=== PATIENT | female | born 1940 | race Caucasian/White ===

== ENCOUNTER 2016-04-20 07:35 | Outpatient (CLI) | payer MEDICARE, OTHER | END 2016-04-20 07:36 | disposition home or self-care (01) | DX: M17.0 Bilateral primary osteoarthritis of knee (principal) ==

== ENCOUNTER 2016-06-19 12:09 | Outpatient (CLI) | payer MEDICARE | END 2016-06-19 12:10 | disposition home or self-care (01) | DX: J06.9 Acute upper respiratory infection, unspecified (principal) ==

== ENCOUNTER 2017-10-22 12:24 | Outpatient (CLI) | payer MEDICARE ==
--- NOTE | 2017-10-22 13:01 | XRAY Report ---
Procedure Date: 10/22/2017 Accession Number: [id number] / [id number] Procedure: XR - Chest 2 View X-Ray CPT Code: 38351 FULL RESULT: EXAM: Chest 2 View X-Ray DATE: 10/22/2017 12:42 PM CLINICAL HISTORY: CHEST PAIN COMPARISON: 06/19/2016. TECHNIQUE: 2 views. FINDINGS: Lungs/Pleura: No focal opacities evident. No pneumothorax or pleural effusion. Normal volumes. Mediastinum: Heart and mediastinal contours are unremarkable. Other: None. IMPRESSION: No acute cardiopulmonary abnormality. RADIA
== END 2017-10-22 12:25 | disposition home or self-care (01) ==
LOC: DI 12:24
PROVIDERS: ATTEND Internal Medicine
DX: R07.9 Chest pain, unspecified (principal)
CPT/HCPCS: 71046

== ENCOUNTER 2017-11-20 20:20 | Emergency (ER) | payer MEDICARE ==
[2017-11-20] MEDS ORDERED: ACETAMINOPHEN 325 MG TABLET PO STA (21:39)
--- NOTE | 2017-11-20 21:42 | ED Physician Documentation ---
History of Present Illness - Stated complaint Stated Complaint: RT LEG PX - Chief complaint Chief Complaint: Ext Problem - History obtained from History obtained from: Patient - History of Present Illness Pain level max: 10 Pain level now: 10 - Additonal information Additional information: Patient is a 77-year-old female who states that she developed leg pain intermittently over the past few days, worse throughout the day as she walked. Better with rest. States is mostly behind the right knee. Became worse tonight and came in for evaluation. Has not taken anything for pain. Review of Systems Constitutional: denies: Fever, Chills Cardiac: denies: Chest pain / pressure Respiratory: denies: Dyspnea, Cough GI: denies: Nausea, Vomiting, Diarrhea PD PAST MEDICAL HISTORY - Past Medical History Past Medical History: Yes Endocrine/Autoimmune: Type 2 diabetes GI: GERD - Past Surgical History Past Surgical History: Yes General: Cholecystectomy - Present Medications Home Medications: Ambulatory Orders Medication Instructions Recorded Confirmed Aspirin Chewable [[facility] 1 tab PO DAILY 10/27/15 Aspirin] Metformin HCl 500 mg PO BIDWM 10/01/17 10/01/17 Multivitamin [Multivitamins] 1 each PO DAILY 10/01/17 10/01/17 Potassium Chloride 1 tab PO DAILY 10/01/17 10/01/17 predniSONE [Prednisone] 40 mg PO DAILY #8 tablet 11/20/17 - Allergies Allergies/Adverse Reactions: Allergies Allergy/AdvReac Type Severity Reaction Status Date / Time blood pressure medications AdvReac makes her Uncoded 10/01/17 15:34 weak - Social History Does the pt smoke?: No Smoking Status: Never smoker Does the pt drink ETOH?: No Does the pt have substance abuse?: No - Immunizations Immunizations are current?: Yes - POLST Patient has POLST: No PD ED PE NORMAL - Vitals Vital signs reviewed: Yes - General General: Alert and oriented X 3, No acute distress - HEENT HEENT: Moist mucous membranes - Neck Neck: Supple, no meningeal sign - Cardiac Cardiac: RRR - Respiratory Respiratory: No respiratory distress, Clear bilaterally - Derm Derm: Warm and dry - Neuro Neuro: Other (Tender to palpation on the posterior aspect of the right calf as well as mild prepatellar swelling, no skin changes. Neurovascularly intact) Results - Vitals Vitals: Oxygen O2 Source Room air - Rads (name of study) Right lower extremity ultrasound Radiology: Prelim report reviewed, EMP read contemporaneously, See rad report ( No DVT) PD MEDICAL DECISION MAKING - ED course Complexity details: reviewed results, re-evaluated patient, considered differential, d/w patient ED course: Patient is a 77-year-old female who presents with right knee pain. Appears to have a bursitis. Place on a small course of steroids for this. No DVT on ultrasound. Ambulating well with a walker. Will have her follow-up closely with her doctor for further evaluation and care. Patient counseled regarding signs and symptoms for which I believe and urgent re-evaluation would be necessary. Patient with good understanding of and agreement to plan and is comfortable going home at this time This document was made in part using voice recognition software. While efforts are made to proofread this document, sound alike and grammatical errors may occur. - Sepsis Event Vital Signs: Oxygen O2 Source Room air Departure - Departure Disposition: 01 Home, Self Care Clinical Impression: Bursitis Qualifiers: Bursitis location: knee Knee bursitis location: infrapatellar bursitis Laterality: right Qualified Code(s): M70.51 - Other bursitis of knee, right knee Condition: Good Instructions: ED Bursitis Follow-Up: GENIE RUBIO MD [Primary Care Provider] - Within 1 week Prescriptions: predniSONE [Prednisone] 40 mg PO DAILY #8 tablet Comments: Return if you worsen. You can use tylenol as needed for pain at home. Use the walker as needed. Discharge Date/Time: 11/21/17 00:06
[2017-11-20] MEDS ORDERED: predniSONE 20 MG TABLET PO STA (22:59)
--- NOTE | 2017-11-20 23:05 | Ultrasound Report ---
Reason: RLE pain/swelling Procedure Date: 11/20/2017 Accession Number: [id number] / [id number] Procedure: US - Duplex Ext Veins Right CPT Code: FULL RESULT: EXAM: RIGHT LOWER EXTREMITY VENOUS ULTRASOUND EXAM DATE: 11/20/2017 10:20 PM. CLINICAL HISTORY: Right leg pain, swelling COMPARISON: None. TECHNIQUE: Real-time sonographic vascular imaging was performed by the cutlery grinder through the lower extremity utilizing both color-flow and Doppler spectral analysis. Multiple bilingual inside sales representative static images were saved for review. FINDINGS: Common Femoral Vein (CFV): Normal. CFV-GSV Junction: Normal. Profunda Femoral Vein (PFV): Normal. Femoral Vein (FV) Prox: Normal. Femoral Vein (FV) Mid: Normal. Femoral Vein (FV) Dist: Normal. Popliteal Vein: Normal. Posterior Tibial Veins: Normal. Peroneal Veins: Normal. Other: Incidental joint effusion right knee. IMPRESSION: No evidence for deep venous thrombosis. RADIA
[2017-11-21 00:08] VITALS: BP 134/85
== END 2017-11-21 00:06 | disposition home or self-care (01) ==
LOC: ED 20:20
DX: M70.51 Other bursitis of knee, right knee (principal); E11.9 Type 2 diabetes mellitus without complications; Z79.82 Long term (current) use of aspirin
CPT/HCPCS: 93971; 99283; A9270; J7512

== ENCOUNTER 2019-01-22 15:00 | Outpatient (CLI) | payer MEDICARE ==
--- NOTE | 2019-01-23 08:58 | XRAY Report ---
Reason: ACUTE BRONCHITIS,UNSPECIFIED Procedure Date: 01/22/2019 Accession Number: [id number] / [id number] Procedure: XR - Chest 2 View X-Ray CPT Code: 26589 FULL RESULT: EXAM: CHEST RADIOGRAPHY EXAM DATE: 01/22/2019 03:05 PM. CLINICAL HISTORY: Acute bronchitis, unspecified. COMPARISON: CHEST 2 VIEW 10/22/2017 12:31 PM. TECHNIQUE: 2 views. FINDINGS: Lungs/Pleura: Mild focal density at the medial right lung base appears mildly increased and may represent atelectasis or scarring. No other definite focal opacities. No pleural effusion. No pneumothorax. Mediastinum: Heart and mediastinal contours are unremarkable. Other: Degenerative spondylosis redemonstrated. IMPRESSION: Mild increased focal density at the medial right lung base likely represents atelectasis or scarring. No other focal or definite acute abnormality. RADIA
== END 2019-01-22 15:01 | disposition home or self-care (01) ==
LOC: DI 15:00
PROVIDERS: ATTEND Physician Assistant
DX: J20.9 Acute bronchitis, unspecified (principal)
CPT/HCPCS: 71046

== ENCOUNTER 2019-03-29 11:12 | Outpatient (CLI) | payer MEDICARE ==
--- NOTE | 2019-03-31 01:16 | Ultrasound Report ---
Reason: ABD PAIN Procedure Date: 03/29/2019 Accession Number: [id number] / [id number] Procedure: US - Pelvic w/Transvaginal CPT Code: Final Report FULL RESULT: EXAM: PELVIC ULTRASOUND EXAM DATE: 03/29/2019 12:15 PM. CLINICAL HISTORY: Lower abdominal pain. Status post hysterectomy. COMPARISON: PELVIC W/TRANSVAGINAL 04/26/2015 1:27 PM. TECHNIQUE: Realtime transabdominal pelvic scan performed for overall evaluation, followed by transvaginal scan to provide greater detail, with static image documentation. FINDINGS: Uterus: Surgically absent. Right Ovary: Not seen due to bowel gas. Left Ovary: 3.2 x 2.4 x 3.1 cm, volume 12.2 cc. Cyst measuring 2.6 x 2.6 x 2.4 cm, previously 2.1 x 2.3 x 2.5 cm. Normal Doppler flow signal. Free Fluid: None. Other: None. IMPRESSION: 1. Status post hysterectomy. Right ovary not seen due to bowel gas. 2. Left ovarian cyst again seen, measuring 2.6 x 2.6 x 2.4 cm. No torsion. RADIA
== END 2019-03-29 11:13 | disposition home or self-care (01) ==
LOC: DI 11:12
PROVIDERS: ATTEND Registered Nurse
DX: N83.202 Unspecified ovarian cyst, left side (principal); Z90.710 Acquired absence of both cervix and uterus
CPT/HCPCS: 76830; 76856

== ENCOUNTER 2020-01-13 08:00 | Outpatient (CLI) | payer MEDICARE | END 2020-01-13 23:59 | disposition home or self-care (01) | LOC: LAB.S 08:00 | PROVIDERS: ATTEND Physician Assistant | DX: E11.65 Type 2 diabetes mellitus with hyperglycemia (principal) | CPT/HCPCS: 82962 ==

== ENCOUNTER 2020-01-15 07:00 | Outpatient (CLI) | payer MEDICARE ==
[2020-01-15 20:44] LABS: CREATININE,URINE 147.6 mg/dL; MICROALBUMIN,URINE 0.3 mg/dL (0-300.0)
== END 2020-01-15 23:59 | disposition home or self-care (01) ==
LOC: LAB.R 07:00
PROVIDERS: ATTEND Physician Assistant Medical
DX: E11.65 Type 2 diabetes mellitus with hyperglycemia (principal); R39.14 Feeling of incomplete bladder emptying; R82.998 Other abnormal findings in urine
CPT/HCPCS: 82043; 82570; 87086

== ENCOUNTER 2020-01-15 08:00 | Outpatient (CLI) | payer MEDICARE ==
[2020-01-15 20:06] LABS: BASOPHILS # (AUTO) 0.1 10^3/uL (0.0-0.1); BASOPHILS % (AUTO) 0.7 %; EOSINOPHILS # (AUTO) 0.2 10^3/uL (0.0-0.7); EOSINOPHILS % (AUTO) 1.9 %; HGB - HEMOGLOBIN 15.4 g/dL (12.0-16.0); LYMPHOCYTES # (AUTO) 2.3 10^3/uL (1.5-3.5); LYMPHOCYTES % (AUTO) 22.7 %; MEAN CORPUSCULAR HEMOGLOBIN 28.8 pg (27.0-31.0); MEAN CORPUSCULAR HGB CONC 32.6 g/dL (32.0-36.0); MEAN CORPUSCULAR VOLUME 88.4 fL (81.0-99.0); MEAN PLATELET VOLUME 10.9 fL (7.9-10.8); MONOCYTES # (AUTO) 0.6 10^3/uL (0.0-1.0); NEUTROPHILS % (AUTO) 68.2 %; PLT - PLATELET COUNT 273 10^3/uL (130-450); RED BLOOD COUNT 5.34 10^6/uL (4.20-5.40); RED CELL DISTRIBUTION WIDTH 14.7 % (12.0-15.0); WHITE BLOOD COUNT 10.3 x10^3/uL (4.8-10.8)
[2020-01-15 20:20] LABS: CALCIUM 9.1 mg/dL (8.5-10.3); CREATININE 0.9 mg/dL (0.4-1.0); CRP - C-REACTIVE PROTEIN 1.2 mg/dL (0-1.0)
[2020-01-15 20:47] LABS: HEMOGLOBIN A1c% 7.7 % (4.27-6.07)
== END 2020-01-15 23:59 | disposition home or self-care (01) ==
LOC: LAB.S 08:00
PROVIDERS: ATTEND Physician Assistant Medical
DX: R79.82 Elevated C-reactive protein (CRP) (principal); R06.02 Shortness of breath; E11.65 Type 2 diabetes mellitus with hyperglycemia
CPT/HCPCS: 36415; 80048; 83036; 84484; 85025; 86140

== ENCOUNTER 2020-01-15 08:00 | Outpatient (CLI) | payer MEDICARE ==
--- NOTE | 2020-01-15 15:40 | XRAY Report ---
PROCEDURE: Chest 2 View X-Ray INDICATIONS: SHORTNESS OF BREATH TECHNIQUE: 2 view(s) of the chest. COMPARISON: 01/22/2019, 10/22/2017, 06/19/2016, 04/28/2013. FINDINGS: Surgical changes and devices: None. Lungs and pleura: No pleural effusions or pneumothorax. Stable opacity over the medial right upper lung zone compatible with degenerative changes at the articulation of the distal first rib. Its stabi lity since 2013 supports a benign process. Lungs are otherwise clear. No acute airspace disease. Mediastinum: Mediastinal contours are normal. Heart size is normal. Bones and chest wall: No suspicious bony abnormalities. Soft tissues appear unremarkable. IMPRESSION: Stable examination of the chest without acute cardiopulmonary abnormalities. Reviewed by: Luis A Mo MD on 01/15/2020 3:38 PM PDT Approved by: Luis A Mo MD on 01/15/2020 3:38 PM PDT Station ID: [id number]
== END 2020-01-15 23:59 | disposition home or self-care (01) ==
LOC: DI.S 08:00
PROVIDERS: ATTEND Physician Assistant Medical
DX: R06.02 Shortness of breath (principal); E11.65 Type 2 diabetes mellitus with hyperglycemia; R79.82 Elevated C-reactive protein (CRP); R39.14 Feeling of incomplete bladder emptying; R82.998 Other abnormal findings in urine
CPT/HCPCS: 36415; 71046; 80048; 82043; 82570; 83036; 84484; 85025; 86140; 87086

== ENCOUNTER 2020-01-19 15:48 | Outpatient (CLI) | payer MEDICARE | END 2020-01-19 15:49 | disposition home or self-care (01) | LOC: LAB.S 15:48 | PROVIDERS: ATTEND Internal Medicine | DX: R06.02 Shortness of breath (principal) | CPT/HCPCS: 36415; 83880 ==

== ENCOUNTER 2020-03-10 16:14 | Outpatient (CLI) | payer MEDICARE | END 2020-03-10 16:15 | disposition home or self-care (01) | LOC: LAB.S 16:14 | PROVIDERS: ATTEND Internal Medicine | DX: L65.9 Nonscarring hair loss, unspecified (principal) | CPT/HCPCS: 36415; 82728; 84443 ==

== ENCOUNTER 2020-05-18 10:11 | Outpatient (CLI) | payer MEDICARE ==
[2020-05-18 14:28] LABS: BASOPHILS # (AUTO) 0.1 10^3/uL (0.0-0.1); BASOPHILS % (AUTO) 0.6 %; EOSINOPHILS # (AUTO) 0.3 10^3/uL (0.0-0.7); EOSINOPHILS % (AUTO) 3.4 %; HGB - HEMOGLOBIN 15.9 g/dL (12.0-16.0); LYMPHOCYTES # (AUTO) 2.1 10^3/uL (1.5-3.5); MEAN CORPUSCULAR HEMOGLOBIN 28.7 pg (27.0-31.0); MEAN CORPUSCULAR HGB CONC 32.6 g/dL (32.0-36.0); MEAN CORPUSCULAR VOLUME 87.9 fL (81.0-99.0); MEAN PLATELET VOLUME 11.4 fL (7.9-10.8); MONOCYTES # (AUTO) 0.5 10^3/uL (0.0-1.0); MONOCYTES % (AUTO) 5.7 %; NEUTROPHILS # (AUTO) 5.1 10^3/uL (1.5-6.6); PLT - PLATELET COUNT 269 10^3/uL (130-450); RED BLOOD COUNT 5.54 10^6/uL (4.20-5.40); RED CELL DISTRIBUTION WIDTH 14.5 % (12.0-15.0)
[2020-05-18 15:33] LABS: ALBUMIN 3.6 g/dL (3.2-5.5); ALKALINE PHOSPHATASE 88 IU/L (42-121); ALT ALANINE AMINOTRANSFERASE 24 IU/L (10-60); AST ASPARTATE AMINOTRANSFERASE 17 IU/L (10-42); BILIRUBIN,TOTAL 0.6 mg/dL (0.2-1.0); BUN - BLOOD UREA NITROGEN 20 mg/dL (6-20); CALCIUM 9.3 mg/dL (8.5-10.3); CARBON DIOXIDE - CO2 23 mmol/L (21-32); CHLORIDE 108 mmol/L (101-111); CHOL/HDL RATIO 3.7 (<4.4); CHOLESTEROL 187 mg/dL; CREATININE 0.9 mg/dL (0.4-1.0); GLUCOSE 193 mg/dL (70-100); HDL CHOLESTEROL 51 mg/dL; LDL CHOLESTEROL,CALCULATED 110 mg/dL; LDL/HDL RATIO 2.2 (<4.4); TOTAL PROTEIN 7.2 g/dL (6.7-8.2); VLDL CHOLESTEROL 26 mg/dL
[2020-05-18 20:05] LABS: HEMOGLOBIN A1c% 8.6 % (4.27-6.07)
== END 2020-05-18 10:12 | disposition home or self-care (01) ==
LOC: LAB.S 10:11
PROVIDERS: ATTEND Internal Medicine
DX: E11.65 Type 2 diabetes mellitus with hyperglycemia (principal); Z79.899 Other long term (current) drug therapy; R79.82 Elevated C-reactive protein (CRP)
CPT/HCPCS: 36415; 80053; 80061; 83036; 83721; 85025; 86140

== ENCOUNTER 2020-06-09 10:49 | Outpatient (CLI) | payer MEDICARE ==
--- NOTE | 2020-06-10 14:18 | Mammography Report ---
BILATERAL DIGITAL SCREENING MAMMOGRAM 3D/2D: 06/09/2020 CLINICAL: Routine screening. Comparison is made to exam dated: 04/29/2014 mammogram - [facility]. There are scat tered fibroglandular elements in both breasts. No significant masses, calcifications, or other findings are seen in either breast. There has been no significant interval change. IMPRESSION: NEGATIVE There is no mammographic evidence of malignancy. A 1 year screening mammogram is recommended. This exam was interpreted at Station ID: [id number]. NOTE: For mammograms, a report in lay terms will be sent to the patient. Approximately 15% of breast malignancies will not be visualized mammographically. In the management of a palpable breast mass, a negative mammogram must not discourage biopsy of a clinically suspicious lesion. Electronically Signed By: Sudha min/jordyn:06/09/2020 14:34:34 ACR BI-RADS Category 1: Negative 3341F PARENCHYMAL PATTERN: (A) - The breast(s) demonstrate(s) scattered fibroglandular densities. BI-RADS CATEGORY: (1) - 1 RECOMMENDATION: (ANNUAL) - Recommend routine annual screening mammography. [id number] 1 year screening LATERALITY: (B)
== END 2020-06-09 10:50 | disposition home or self-care (01) ==
LOC: DI.S 10:49
DX: Z12.31 Encounter for screening mammogram for malignant neoplasm of breast (principal)

== ENCOUNTER 2020-09-06 09:02 | Outpatient (CLI) | payer MEDICARE ==
[2020-09-06 20:22] LABS: ESTIMATED AVERAGE GLUCOSE 220 mg/dL (70-100); HEMOGLOBIN A1c% 9.3 % (4.27-6.07)
== END 2020-09-06 09:03 | disposition home or self-care (01) ==
LOC: LAB.S 09:02
PROVIDERS: ATTEND Internal Medicine
DX: E11.65 Type 2 diabetes mellitus with hyperglycemia (principal)
CPT/HCPCS: 36415; 83036

== ENCOUNTER 2021-04-19 12:48 | Outpatient (CLI) | payer MEDICARE ==
[2021-04-19 16:06] LABS: ALBUMIN 3.4 g/dL (3.2-5.5); ALBUMIN/GLOBULIN RATIO 0.9 (1.0-2.2); BILIRUBIN,TOTAL 0.7 mg/dL (0.2-1.0); CALCIUM 9.1 mg/dL (8.5-10.3); TOTAL PROTEIN 7.1 g/dL (6.7-8.2)
[2021-04-19 20:17] LABS: ESTIMATED AVERAGE GLUCOSE 137 mg/dL (70-100); HEMOGLOBIN A1c% 6.4 % (4.27-6.07)
== END 2021-04-19 12:49 | disposition home or self-care (01) ==
LOC: LAB.S 12:48
PROVIDERS: ATTEND Internal Medicine
DX: E11.65 Type 2 diabetes mellitus with hyperglycemia (principal)
CPT/HCPCS: 36415; 80053; 83036

== ENCOUNTER 2021-05-07 16:10 | Outpatient (CLI) | payer MEDICARE | END 2021-05-07 23:59 | disposition home or self-care (01) | LOC: LAB 16:10 | PROVIDERS: ATTEND Physician Assistant Medical | DX: R09.81 Nasal congestion (principal); R07.0 Pain in throat; R06.9 Unspecified abnormalities of breathing; Z20.822 Contact with and (suspected) exposure to COVID-19 ==

== ENCOUNTER 2021-08-23 11:25 | Outpatient (CLI) | payer MEDICARE ==
[2021-08-23 17:45] LABS: BILIRUBIN,URINE NEGATIVE (NEGATIVE); GLUCOSE, URINE (UA) NEGATIVE (NEGATIVE); KETONES,URINE (UA) NEGATIVE (NEGATIVE); LEUKOCYTE ESTERASE, URINE TRACE (NEGATIVE); NITRITE,URINE POSITIVE (NEGATIVE); OCCULT BLOOD,URINE MODERATE (NEGATIVE); PH,URINE 5.5 PH (5.0-7.5); PROTEIN,URINE NEGATIVE (NEGATIVE); UROBILINOGEN,URINE 0.2 (NORMAL) E.U./dL (NORMAL)
[2021-08-23 17:52] LABS: AMORPHOUS SEDIMENT,UR Moderate /LPF; BACTERIA,URINE Many /HPF (None Seen); CLARITY,URINE CLOUDY (CLEAR); SQUAMOUS EPITHELIAL CELL,UR RARE Squamous (<= Few)
== END 2021-08-23 23:59 | disposition home or self-care (01) ==
LOC: LAB.WCP 11:25
PROVIDERS: ATTEND Nurse Practitioner Family
DX: N39.0 Urinary tract infection, site not specified (principal)
CPT/HCPCS: 81001; 87086; 87181

== ENCOUNTER 2021-11-23 08:00 | Outpatient (CLI) | payer MEDICARE ==
[2021-11-23 20:40] LABS: EOSINOPHILS # (AUTO) 0.2 10^3/uL (0.0-0.7); EOSINOPHILS % (AUTO) 1.6 %; HCT - HEMATOCRIT 51.2 % (37.0-47.0); LYMPHOCYTES # (AUTO) 1.4 10^3/uL (1.5-3.5); LYMPHOCYTES % (AUTO) 12.4 %; MEAN CORPUSCULAR HEMOGLOBIN 28.6 pg (27.0-31.0); MEAN CORPUSCULAR HGB CONC 33.2 g/dL (32.0-36.0); MEAN CORPUSCULAR VOLUME 86.1 fL (81.0-99.0); MEAN PLATELET VOLUME 10.8 fL (7.9-10.8); MONOCYTES # (AUTO) 0.7 10^3/uL (0.0-1.0); MONOCYTES % (AUTO) 5.9 %; NEUTROPHILS # (AUTO) 8.8 10^3/uL (1.5-6.6); NEUTROPHILS % (AUTO) 79.7 %; PLT - PLATELET COUNT 313 10^3/uL (130-450); RED BLOOD COUNT 5.95 10^6/uL (4.20-5.40); RED CELL DISTRIBUTION WIDTH 15.2 % (12.0-15.0); WHITE BLOOD COUNT 11.1 x10^3/uL (4.8-10.8)
[2021-11-23 20:48] LABS: ALBUMIN 4.1 g/dL (3.2-5.5); BILIRUBIN,TOTAL 1.1 mg/dL (0.2-1.0); CALCIUM 9.1 mg/dL (8.5-10.3); POTASSIUM 3.3 mmol/L (3.5-5.0); TOTAL PROTEIN 8.2 g/dL (6.7-8.2)
== END 2021-11-23 23:59 | disposition home or self-care (01) ==
LOC: LAB.N 08:00
PROVIDERS: ATTEND Nurse Practitioner
DX: R19.7 Diarrhea, unspecified (principal)
CPT/HCPCS: 36415; 80053; 82150; 83690; 85025

== ENCOUNTER 2021-12-14 11:31 | Outpatient (CLI) | payer MEDICARE ==
[2021-12-14 11:56] LABS: FECAL OCCULT BLOOD (FIT) NEGATIVE (NEGATIVE)
== END 2021-12-14 11:32 | disposition home or self-care (01) ==
LOC: LAB 11:31
PROVIDERS: ATTEND Physician Assistant
DX: R19.7 Diarrhea, unspecified (principal)
CPT/HCPCS: 82274; 83993; 87045; 87046; 87177; 87328; 87329; 87427; 87493

== ENCOUNTER 2021-12-16 13:28 | Outpatient (CLI) | payer MEDICARE ==
[2021-12-18 17:08] LABS: GIARDIA LAMBLIA AG EIA Negative (Negative)
== END 2021-12-16 13:29 | disposition home or self-care (01) ==
LOC: LAB 13:28
PROVIDERS: ATTEND Physician Assistant
DX: R19.7 Diarrhea, unspecified (principal)
CPT/HCPCS: 87177; 87328; 87329

== ENCOUNTER 2022-09-01 10:02 | Outpatient (CLI) | payer MEDICARE ==
[2022-09-01 10:19] LABS: BASOPHILS # (AUTO) 0.1 10^3/uL (0.0-0.1); BASOPHILS % (AUTO) 0.7 %; EOSINOPHILS # (AUTO) 0.2 10^3/uL (0.0-0.7); EOSINOPHILS % (AUTO) 2.8 %; HCT - HEMATOCRIT 47.8 % (37.0-47.0); HGB - HEMOGLOBIN 15.7 g/dL (12.0-16.0); LYMPHOCYTES % (AUTO) 24.4 %; MEAN CORPUSCULAR HEMOGLOBIN 28.3 pg (27.0-31.0); MEAN CORPUSCULAR HGB CONC 32.8 g/dL (32.0-36.0); MEAN CORPUSCULAR VOLUME 86.3 fL (81.0-99.0); MEAN PLATELET VOLUME 10.1 fL (7.9-10.8); MONOCYTES # (AUTO) 0.6 10^3/uL (0.0-1.0); MONOCYTES % (AUTO) 6.9 %; NEUTROPHILS # (AUTO) 5.3 10^3/uL (1.5-6.6); NEUTROPHILS % (AUTO) 65.1 %; PLT - PLATELET COUNT 245 10^3/uL (130-450); RED BLOOD COUNT 5.54 10^6/uL (4.20-5.40); RED CELL DISTRIBUTION WIDTH 14.2 % (12.0-15.0); WHITE BLOOD COUNT 8.1 x10^3/uL (4.8-10.8)
[2022-09-01 10:27] LABS: ESTIMATED AVERAGE GLUCOSE 180 mg/dL (70-100); HEMOGLOBIN A1c% 7.9 % (4.27-6.07)
[2022-09-01 10:36] LABS: CREATININE,URINE 111.1 mg/dL; MICROALBUM/CREATININE RATIO,UR 3.6 ug/mg (<30.0); MICROALBUMIN,URINE 0.4 mg/dL (0-300.0)
[2022-09-01 10:36] LABS: ALBUMIN 3.6 g/dL (3.2-5.5); ALBUMIN/GLOBULIN RATIO 0.9 (1.0-2.2); BILIRUBIN,TOTAL 0.6 mg/dL (0.2-1.0); CALCIUM 8.9 mg/dL (8.5-10.3); CREATININE 0.9 mg/dL (0.4-1.0); CRP - C-REACTIVE PROTEIN 1.1 mg/dL (0-1.0); POTASSIUM 4.1 mmol/L (3.5-5.0); TOTAL PROTEIN 7.5 g/dL (6.7-8.2)
[2022-09-01 10:48] LABS: THYROID STIMULATING HORMONE 3.37 uIU/mL (0.34-5.60)
== END 2022-09-01 10:03 | disposition home or self-care (01) ==
LOC: LAB 10:02
PROVIDERS: ATTEND Family Medicine
DX: E11.9 Type 2 diabetes mellitus without complications (principal); E03.9 Hypothyroidism, unspecified; R19.7 Diarrhea, unspecified; K21.9 Gastro-esophageal reflux disease without esophagitis; R53.83 Other fatigue; R53.81 Other malaise
CPT/HCPCS: 36415; 80053; 82043; 82570; 83036; 84443; 85025; 86140

== ENCOUNTER 2023-05-28 15:25 | Emergency (ER) | payer MEDICARE ==
--- NOTE | 2023-05-28 16:05 | ED Physician Documentation ---
PD HPI ABD PAIN - Stated complaint Stated Complaint: ABD PX,GI - Chief complaint Chief Complaint: Abd Pain - Additional information Additional information: 82-year-old female with type 2 diabetes and history of chronic diarrhea for the last year and a half presents emergency department for left lower quadrant abdominal pain. Patient says that she has not had a bowel movement about a week she says that she has not taken any medications or changed anything to have caused this constipation. She also says that she is having a hard time urinating she feels like she has to pee has urinary urgency and only a couple dribbles come out and she feels like she is unable to ever fully empty her bladder. She is also complaining of left CVA tenderness. She is unsure if she has had any fevers or chills at home she endorses a nausea no vomiting no diarrhea in the last week. 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 - Present Medications Home Medications: Ambulatory Orders Medication Instructions Recorded Confirmed Atorvastatin Calcium 20 mg PO DAILY 08/06/19 05/28/23 - Allergies Allergies/Adverse Reactions: Allergies Allergy/AdvReac Type Severity Reaction Status Date / Time blood pressure medications AdvReac makes her Uncoded 05/28/23 19:52 weak - Social History Does the pt smoke?: No Smoking Status: Never smoker Does the pt drink ETOH?: No Does the pt have substance abuse?: No - Immunizations Immunizations are current?: Yes - POLST Patient has POLST: No PD ED PE NORMAL - Vitals Vital signs reviewed: Yes - General General: Alert and oriented X 3, No acute distress, Other (obese) - Cardiac Cardiac: RRR, No murmur, No gallop, Strong equal pulses - Respiratory Respiratory: No respiratory distress, Clear bilaterally - Abdomen Abdomen: Normal bowel sounds, Soft, Non distended, No organomegaly, Other (LLQ tenderness) - Back Back: Other (Left CVA tenderness) - Derm Derm: Normal color, Warm and dry, No rash - Extremities Extremities: No edema - Neuro Neuro: Alert and oriented X 3 - Psych Psych: Normal mood Results - Vitals Vitals: Vital Signs - 24 hr 05/28/23 05/28/23 05/28/23 15:32 16:22 19:32 Temperature 36 C L Heart Rate 80 73 77 Respiratory 16 18 18 Rate Blood Pressure 158/76 H 146/64 H 138/69 H O2 Saturation 95 94 94 05/28/23 21:00 Temperature Heart Rate 74 Respiratory 18 Rate Blood Pressure 135/72 H O2 Saturation 95 Oxygen O2 Source Room air - Labs Labs: Laboratory Tests 05/28/23 05/28/23 05/28/23 16:16 16:16 16:50 WBC 10.9 H RBC 5.54 H Hgb 15.6 Hct 47.5 H MCV 85.7 MCH 28.2 MCHC 32.8 RDW 14.4 Plt Count 259 MPV 10.2 Neut # (Auto) 7.7 H Lymph # (Auto) 2.1 Bowie # (Auto) 0.6 Eos # (Auto) 0.3 Baso # (Auto) 0.1 Absolute Nucleated RBC 0.00 Nucleated RBC % 0.0 Sodium 143 Potassium 3.2 L Chloride 105 Carbon Dioxide 31 Anion Gap 7.0 BUN 16 Creatinine 0.9 Estimated GFR (MDRD) 60 L Glucose 146 H Calcium 9.6 Magnesium 1.9 Total Bilirubin 0.5 AST 15 ALT 18 Alkaline Phosphatase 75 Total Protein 7.0 Albumin 3.7 Globulin 3.3 Albumin/Globulin Ratio 1.1 Lipase 26 Urine Color YELLOW Urine Clarity HAZY Urine pH 6.0 Ur Specific [place] 1.025 Urine Protein NEGATIVE Urine Glucose (UA) NEGATIVE Urine Ketones NEGATIVE Urine Occult Blood NEGATIVE Urine Nitrite NEGATIVE Urine Bilirubin NEGATIVE Urine Urobilinogen 0.2 (NORMAL) Ur Leukocyte Esterase TRACE H Urine RBC 0-5 Urine WBC 4-5 Ur Squamous Epith Cells MANY Squamous H Urine Bacteria Few Ur Microscopic Review INDICATED Urine Culture Comments NOT INDICATED 05/28/23 19:51 WBC RBC Hgb Hct MCV MCH MCHC RDW Plt Count MPV Neut # (Auto) Lymph # (Auto) [place] # (Auto) Eos # (Auto) Baso # (Auto) Absolute Nucleated RBC Nucleated RBC % Sodium Potassium Chloride Carbon Dioxide Anion Gap BUN Creatinine Estimated GFR (MDRD) Glucose Calcium Magnesium Total Bilirubin AST ALT Alkaline Phosphatase Total Protein Albumin Globulin Albumin/Globulin Ratio Lipase Urine Color YELLOW Urine Clarity CLEAR Urine pH 6.5 Ur Specific [place] 1.010 Urine Protein NEGATIVE Urine Glucose (UA) NEGATIVE Urine Ketones NEGATIVE Urine Occult Blood NEGATIVE Urine Nitrite NEGATIVE Urine Bilirubin NEGATIVE Urine Urobilinogen 0.2 (NORMAL) Ur Leukocyte Esterase NEGATIVE Urine RBC None Seen Urine WBC 0-3 Ur Squamous Epith Cells FEW Squamous Urine Bacteria None Seen Ur Microscopic Review Urine Culture Comments - Rads (name of study) CT abd/pelvis with con Relevant Findings:: Final report received, EMP independent interpretation of test, Other (Left ovarian cyst 3.3cm, transverse colon of RUQ focal area wall thickening causing narrowing of lumen) PD Medical Decision Making - ED course ED course: 82-year-old female presents emergency department for left lower quadrant pain. Labs are complete no significant leukocytosis, WBC 10.9, hematocrit slightly elevated at 47.5, neutrophils 7.7. Potassium is low at 3.2, GFR 60, glucose 146. Her potassium was replaced with 40 mEq orally. Original urinalysis did show trace leukocytes but a moderate amount of squamous cells. We repeated a urinalysis with a straight cath for a more accurate test as patient is quite obese and repeat urinalysis did not show any leukocytes no nitrites and no bacteria in the urine. CT was also complete which was overall fairly inconclusive it revealed a small left lower quadrant ovarian cyst I am not concerned about an ovarian torsion given the way that she is presenting she has had absolutely no nausea vomiting she is not in a severe amount of pain and declines any pain medications. She was found to have focal area of wall thicke raegan of the transverse colon in the right upper quadrant which does not describe the patient's pain that she is experiencing in her left lower quadrant. Patient was informed that there is a possibility that this is due to a neoplasm and that we are recommending colonoscopy outpatient as well as a nonemergent pelvic ultrasound outpatient. Patient said that she recently had a colonoscopy in February and everything was normal I told her that it might be warranted to repeat colonoscopy outpatient but she needs to follow-up with her primary care provider for further evaluation and discussion of this. She does appear to have a moderate amount of gas through her GI tract on CT scan she is told if she is feeling like she is constipated to start taking things like MiraLAX at home and drinking plenty of water make sure she is getting plenty of activity and to help with bowel movements at home be more consistent. She said historically she has had diarrhea so she was hesitant to start any sort of medication such as MiraLAX but is going to start for now. She was given very strict return precautions if her symptoms get any worse or do not improve to report back to the emergency department for further evaluation. Patient understands and is safe for discharge at this time Departure - Departure Disposition: 01 Home, Self Care Clinical Impression: Ovarian cyst, left Abdominal pain Qualifiers: Abdominal location: left lower quadrant Qualified Code(s): R10.32 - Left lower quadrant pain Constipation Qualifiers: Constipation type: unspecified constipation type Qualified Code(s): K59.00 - Constipation, unspecified Condition: Good Instructions: Abdominal Pain Comments: Thank you for trusting us with your care. See below for your CT results. We are not seeing any UTI symptoms on your urinalysis at this time and your bladder was not found to be distended on the CT scan.. You were found to have a left ovarian cyst that was about 3 cm and there was some focal area of wall thickening within the transverse colon of the right upper quadrant. It is uns ure what is causing this but see radiology notes below they are recommending an outpatient colonoscopy for further evaluation. Going home make sure that you are drinking plenty of fluids and reach out to your primary care provider for further evaluation of your CT results below and consider starting to take something like MiraLAX to help you have a bowel movement. FINDINGS: Image quality: Diagnostic. Lower chest: Linear atelectasis versus scarring at the bilateral lower lobes. Liver: No solid mass. Gallbladder and biliary tree: Surgically absent. No biliary dilation, accounting for post- cholecystectomy state. Spleen: No splenomegaly. Pancreas: No pancreatic ductal dilation. Adrenals: No adrenal nodule. Kidneys and ureters: No hydronephrosis. No renal cystic lesion which requires follow up. No solid mass. Stomach, bowel and peritoneum: Within the transverse colon in the right upper quadrant, there is a focal area of wall thickening with narrowing of the lumen (2/44). Normal appendix. No pathologic free fluid within the abdomen or pelvis. Lymph nodes: No central or retroperitoneal adenopathy. Vessels: No infrarenal aortic aneurysm. Vascular gas or calcifications. PELVIS Reproductive organs: Left ovarian cyst measuring 3.3 cm.. Bladder: No abnormal wall thickening, accounting for underdistention. Pelvic lymph nodes: No pelvic adenopathy by size criteria. Bones: No aggressive osseous abnormality. Degenerative changes of the spine. Other: No significant ventral or inguinal hernia. IMPRESSION: 1.No acute findings to explain patient's symptoms. 2.Within the transverse colon in the right upper quadrant, there is a focal area of wall thickening with narrowing of the lumen, neoplasm is in the differential and colonoscopy is recommended for further evaluation. 3.Left ovarian cyst measuring 3.3 cm. Recommend nonemergent pelvic ultrasound for further evaluation. Forms: PCP List Discharge Date/Time: 05/28/23 21:22
[2023-05-28 16:22] LABS: BASOPHILS # (AUTO) 0.1 10^3/uL (0.0-0.1); BASOPHILS % (AUTO) 0.8 %; EOSINOPHILS # (AUTO) 0.3 10^3/uL (0.0-0.7); HCT - HEMATOCRIT 47.5 % (37.0-47.0); HGB - HEMOGLOBIN 15.6 g/dL (12.0-16.0); LYMPHOCYTES # (AUTO) 2.1 10^3/uL (1.5-3.5); LYMPHOCYTES % (AUTO) 19.4 %; MEAN CORPUSCULAR HEMOGLOBIN 28.2 pg (27.0-31.0); MEAN CORPUSCULAR HGB CONC 32.8 g/dL (32.0-36.0); MEAN CORPUSCULAR VOLUME 85.7 fL (81.0-99.0); MEAN PLATELET VOLUME 10.2 fL (7.9-10.8); MONOCYTES # (AUTO) 0.6 10^3/uL (0.0-1.0); MONOCYTES % (AUTO) 5.6 %; NEUTROPHILS # (AUTO) 7.7 10^3/uL (1.5-6.6); NEUTROPHILS % (AUTO) 70.9 %; PLT - PLATELET COUNT 259 10^3/uL (130-450); RED BLOOD COUNT 5.54 10^6/uL (4.20-5.40); RED CELL DISTRIBUTION WIDTH 14.4 % (12.0-15.0); WHITE BLOOD COUNT 10.9 x10^3/uL (4.8-10.8)
[2023-05-28] MEDS ORDERED: IOVERSOL 320 100 ML VIAL IVP ONE (16:39)
[2023-05-28 16:40] LABS: MAGNESIUM 1.9 mg/dL (1.7-2.3)
[2023-05-28 16:46] LABS: ALBUMIN 3.7 g/dL (3.2-5.5); ALBUMIN/GLOBULIN RATIO 1.1 (1.0-2.2); BILIRUBIN,TOTAL 0.5 mg/dL (0.2-1.0); CALCIUM 9.6 mg/dL (8.5-10.3); CREATININE 0.9 mg/dL (0.6-1.3); POTASSIUM 3.2 mmol/L (3.5-4.5)
[2023-05-28 16:55] LABS: BILIRUBIN,URINE NEGATIVE (NEGATIVE); GLUCOSE, URINE (UA) NEGATIVE (NEGATIVE); KETONES,URINE (UA) NEGATIVE (NEGATIVE); LEUKOCYTE ESTERASE, URINE TRACE (NEGATIVE); NITRITE,URINE NEGATIVE (NEGATIVE); OCCULT BLOOD,URINE NEGATIVE (NEGATIVE); PROTEIN,URINE NEGATIVE (NEGATIVE); UROBILINOGEN,URINE 0.2 (NORMAL) E.U./dL (NORMAL)
[2023-05-28 16:57] LABS: CLARITY,URINE HAZY (CLEAR)
[2023-05-28] MEDS: POTASSIUM CHLORIDE 20 MEQ TABLET PO STA (16:57)
[2023-05-28] MEDS: ONDANSETRON 4 MG/2 ML VIAL IVP STA (16:57)
[2023-05-28 17:10] LABS: BACTERIA,URINE Few /HPF (None Seen); RBC,URINE 0-5 /HPF (0-5); SQUAMOUS EPITHELIAL CELL,UR MANY Squamous (<= Few)
[2023-05-28] MEDS: IOVERSOL 320 100 ML VIAL IVP ONE (18:42)
--- NOTE | 2023-05-28 19:12 | CT Report ---
PROCEDURE: Abdomen/Pelvis W INDICATIONS: RUQ pain CONTRAST: Optiray 320- 100ml TECHNIQUE: After the administration of intravenous contrast, a CT scan of the abdomen and pelvis was performed. Images were recorded and evaluated at appropriate window settings. Reformats: coronal and sagittal. F or radiation dose reduction, the following was used: automated exposure control, adjustment of mA and /or kV according to patient size. COMPARISON: None. FINDINGS: Image quality: Diagnostic. Lower chest: Linear atelectasis versus scarring at the bilateral lower lobes. Liver: No solid mass. Gallbladder and biliary tree: Surgically absent. No biliary dilation, accounting for post-cholecystec rosalie state. Spleen: No splenomegaly. Pancreas: No pancreatic ductal dilation. Adrenals: No adrenal nodule. Kidneys and ureters: No hydronephrosis. No renal cystic lesion which requires follow up. No solid mas s. Stomach, bowel and peritoneum: Within the transverse colon in the right upper quadrant, there is a fo saad area of wall thickening with narrowing of the lumen (2/44). Normal appendix. No pathologic free f luid within the abdomen or pelvis. Lymph nodes: No central or retroperitoneal adenopathy. Vessels: No infrarenal aortic aneurysm. Vascular gas or calcifications. PELVIS Reproductive organs: Left ovarian cyst measuring 3.3 cm.. Bladder: No abnormal wall thickening, accounting for underdistention. Pelvic lymph nodes: No pelvic adenopathy by size criteria. Bones: No aggressive osseous abnormality. Degenerative changes of the spine. Other: No significant ventral or inguinal hernia. IMPRESSION: 1.No acute findings to explain patient's symptoms. 2.Within the transverse colon in the right upper quadrant, there is a focal area of wall thickening w ith narrowing of the lumen, neoplasm is in the differential and colonoscopy is recommended for furthe r evaluation. 3.Left ovarian cyst measuring 3.3 cm. Recommend nonemergent pelvic ultrasound for further evaluation. Reviewed by: Alejandro Irving MD on 05/28/2023 7:11 PM PST Approved by: Alejandro Irving MD on 05/28/2023 7:11 PM PST Station ID: [id number]
[2023-05-28 20:12] LABS: BILIRUBIN,URINE NEGATIVE (NEGATIVE); GLUCOSE, URINE (UA) NEGATIVE (NEGATIVE); KETONES,URINE (UA) NEGATIVE (NEGATIVE); LEUKOCYTE ESTERASE, URINE NEGATIVE (NEGATIVE); NITRITE,URINE NEGATIVE (NEGATIVE); OCCULT BLOOD,URINE NEGATIVE (NEGATIVE); PH,URINE 6.5 PH (5.0-7.5); PROTEIN,URINE NEGATIVE (NEGATIVE); UROBILINOGEN,URINE 0.2 (NORMAL) E.U./dL (NORMAL)
[2023-05-28 20:16] LABS: CLARITY,URINE CLEAR (CLEAR)
[2023-05-28 20:19] LABS: BACTERIA,URINE None Seen /HPF (None Seen); RBC,URINE None Seen /HPF (0-5); SQUAMOUS EPITHELIAL CELL,UR FEW Squamous (<= Few); WBC,URINE 0-3 /HPF (0-5)
[2023-05-28 21:13] VITALS: BP 135/72; O2SAT 95
== END 2023-05-28 21:22 | disposition home or self-care (01) ==
LOC: ED 15:25
DX: R10.32 Left lower quadrant pain (principal); K59.00 Constipation, unspecified; E11.42 Type 2 diabetes mellitus with diabetic polyneuropathy; N83.202 Unspecified ovarian cyst, left side; I10 Essential (primary) hypertension
CPT/HCPCS: 36415; 74177; 80053; 81001; 83690; 83735; 85025; 96374; 99284; A9270; Q9967; 81003; 87086

== ENCOUNTER 2023-06-02 12:15 | Emergency (ER) | payer MEDICARE ==
[2023-06-02] MEDS: ONDANSETRON 4 MG/2 ML VIAL IVP STA (13:07)
[2023-06-02] MEDS: MORPHINE 10 MG/ML VIAL IVP STA (13:07)
[2023-06-02 13:09] LABS: BASOPHILS # (AUTO) 0.1 10^3/uL (0.0-0.1); BASOPHILS % (AUTO) 0.7 %; EOSINOPHILS # (AUTO) 0.1 10^3/uL (0.0-0.7); EOSINOPHILS % (AUTO) 0.9 %; HCT - HEMATOCRIT 49.2 % (37.0-47.0); HGB - HEMOGLOBIN 16.7 g/dL (12.0-16.0); LYMPHOCYTES % (AUTO) 14.2 %; MEAN CORPUSCULAR HEMOGLOBIN 28.9 pg (27.0-31.0); MEAN CORPUSCULAR HGB CONC 33.9 g/dL (32.0-36.0); MEAN CORPUSCULAR VOLUME 85.3 fL (81.0-99.0); MEAN PLATELET VOLUME 10.1 fL (7.9-10.8); MONOCYTES # (AUTO) 0.5 10^3/uL (0.0-1.0); MONOCYTES % (AUTO) 7.2 %; NEUTROPHILS # (AUTO) 5.2 10^3/uL (1.5-6.6); NEUTROPHILS % (AUTO) 76.9 %; PLT - PLATELET COUNT 225 10^3/uL (130-450); RED BLOOD COUNT 5.77 10^6/uL (4.20-5.40); RED CELL DISTRIBUTION WIDTH 14.6 % (12.0-15.0); WHITE BLOOD COUNT 6.8 x10^3/uL (4.8-10.8)
[2023-06-02] MEDS: SODIUM CHLORIDE 0.9% 1,000 ML IV STA (13:09)
[2023-06-02] MEDS: ACYCLOVIR 200 MG CAPSULE PO STA (13:18)
[2023-06-02] MEDS: LIDOCAINE PATCH 5% TOP STA (13:19)
--- NOTE | 2023-06-02 13:19 | ED Physician Documentation ---
History of Present Illness - Stated complaint Stated Complaint: RASH BACK - Chief complaint Chief Complaint: Abd Pain - Additonal information Additional information: Patient 82-year-old female presenting to the emergency department with chief complaints of abdominal discomfort and rash. Initially seen here 1 week ago. Reports has been having persistent sensations of fullness, as well as a feeling of inability to fully evacuate her bowels. She states "I am constipated" but also states "I had diarrhea every day for the last year and a half". Additionally she reports that she began to develop a burning rash on the mid of the left side of her low back Sadia, 4 days ago. Denies any fever, chills, chest pain, shortness of breath, dysuria Chart review of her previous ER evaluation shows that she was diagnosed with a 3.3 cm left-sided ovarian cyst as well as an area of thickening involving the transverse colon concerning for neoplastic process. Review of Systems Constitutional: denies: Fever Eyes: denies: Loss of vision Ears: denies: Loss of hearing Nose: denies: Rhinorrhea / runny nose Throat: denies: Dental pain / toothache Cardiac: denies: Chest pain / pressure Respiratory: denies: Dyspnea GI: reports: Abdominal Pain, Constipation, Diarrhea : denies: Dysuria Skin: reports: Rash Musculoskeletal: reports: Neck pain PD PAST MEDICAL HISTORY - Past Medical History Cardiovascular: Hypertension, High cholesterol Respiratory: Sleep apnea Neuro: Peripheral neuropathy Endocrine/Autoimmune: Type 2 diabetes GI: GERD : Incontinence, Frequency - Past Surgical History Past Surgical History: Yes General: Cholecystectomy, Colonoscopy /VP INFORMATION TECHNOLOGY: Hysterectomy - Present Medications Home Medications: Ambulatory Orders Medication Instructions Recorded Confirmed Atorvastatin Calcium 20 mg PO DAILY 08/06/19 06/02/23 Acyclovir 800 mg PO 5XD #25 tablet 06/02/23 HYDROcod/ACETAM 5/325 [Forman 5/325] 1 - 2 ea PO Q6H PRN #14 tablet 06/02/23 Lidocaine Patch 5% [Lidoderm Patch] 1 patch TOP DAILY PRN #10 patch 06/02/23 Losartan [Cozaar] 25 mg PO DAILY 06/02/23 06/02/23 polyethylene glycoL 3350 [Miralax] 17 gm PO DAILY #30 packet 06/02/23 - Allergies Allergies/Adverse Reactions: Allergies Allergy/AdvReac Type Severity Reaction Status Date / Time blood pressure medications AdvReac makes her Uncoded 06/02/23 12:34 weak - Social History Does the pt smoke?: No Smoking Status: Never smoker Does the pt drink ETOH?: No Does the pt have substance abuse?: No - Immunizations Immunizations are current?: Yes - POLST Patient has POLST: No PD ED PE NORMAL - Vitals Vital signs reviewed: Yes - General General: Alert and oriented X 3, No acute distress, Well developed/nourished - HEENT HEENT: Atraumatic, PERRL - Neck Neck: Supple, no meningeal sign - Cardiac Cardiac: RRR - Respiratory Respiratory: No respiratory distress - Abdomen Abdomen: Normal bowel sounds - Female Female : Deferred - Rectal Rectal: Deferred - Back Back: No CVA TTP - Derm Derm: Other (Vesicular rash with erythema without induration or fluctuance noted involving the left side of the patient's approximate L3-L4 dermatome.) Results - Vitals Vitals: Vital Signs - 24 hr 06/02/23 06/02/23 06/02/23 12:26 14:33 16:00 Temperature 36.8 C Heart Rate 88 87 77 Respiratory 16 18 16 Rate Blood Pressure 158/68 H 175/87 H 153/72 H O2 Saturation 97 98 97 Oxygen O2 Source Room air - Labs Labs: Laboratory Tests 06/02/23 06/02/23 06/02/23 13:05 13:05 13:05 WBC 6.8 RBC 5.77 H Hgb 16.7 H Hct 49.2 H MCV 85.3 MCH 28.9 MCHC 33.9 RDW 14.6 Plt Count 225 MPV 10.1 Neut # (Auto) 5.2 Lymph # (Auto) 1.0 L Prentiss # (Auto) 0.5 Eos # (Auto) 0.1 Baso # (Auto) 0.1 Absolute Nucleated RBC 0.00 Nucleated RBC % 0.0 Sodium 137 Potassium 3.9 Chloride 104 Carbon Dioxide 25 Anion Gap 8.0 BUN 12 Creatinine 1.0 Estimated GFR (MDRD) 53 L Glucose 141 H Lactic Acid 1.0 Calcium 9.3 Total Bilirubin 0.6 AST 20 ALT 22 Alkaline Phosphatase 84 Total Protein 7.7 Albumin 4.0 Globulin 3.7 Albumin/Globulin Ratio 1.1 Lipase 18 Urine Color Urine Clarity Urine pH Ur Specific [place] Urine Protein Urine Glucose (UA) Urine Ketones Urine Occult Blood Urine Nitrite Urine Bilirubin Urine Urobilinogen Ur Leukocyte Esterase Ur Microscopic Review Urine Culture Comments 06/02/23 15:00 WBC RBC Hgb Hct MCV MCH MCHC RDW Plt Count MPV Neut # (Auto) Lymph # (Auto) Prentiss # (Auto) Eos # (Auto) Baso # (Auto) Absolute Nucleated RBC Nucleated RBC % Sodium Potassium Chloride Carbon Dioxide Anion Gap BUN Creatinine Estimated GFR (MDRD) Glucose Lactic Acid Calcium Total Bilirubin AST ALT Alkaline Phosphatase Total Protein Albumin Globulin Albumin/Globulin Ratio Lipase Urine Color YELLOW Urine Clarity CLEAR Urine pH 5.5 Ur Specific [place] 1.015 Urine Protein NEGATIVE Urine Glucose (UA) NEGATIVE Urine Ketones 15 H Urine Occult Blood NEGATIVE Urine Nitrite NEGATIVE Urine Bilirubin NEGATIVE Urine Urobilinogen 0.2 (NORMAL) Ur Leukocyte Esterase NEGATIVE Ur Microscopic Review NOT INDICATED Urine Culture Comments NOT INDICATED PD Medical Decision Making - ED course Complexity details: reviewed results, d/w patient ED course: Patient 82-year-old female presenting the emergency department with abdominal pain. Subsequently identified as having vesicular right rash in a dermatomal pattern consistent with acute shingles infection. Patient reported that her shingles infection did begin Sunday, greater than 72 hours ago. However she also reported that it did have some evolution and developing vesicles over the course of the last 24 hours and given this I do believe that the benefit of a course of acyclovir outweighs risks. Acyclovir started in the emergency department. Patient's lab work in the emergency department reassuring. CT of the abdomen pelvis does not demonstrate any acute intra-abdominal pathology. The previous thickening of her bowel concerning for colonic neoplastic process is no longer seen. However she continues to have a 3.3 cm left complex ovarian cyst. This is concerning for ovarian neoplastic process. Communicated this with the patient. She has follow-up with primary care for further evaluation and treatment on Sunday. She will be discharged with acyclovir, medication to help with constipation, medication for pain control. She was instructed in the importance of keeping her lesions covered when in public. Avoiding contact with young, women, the elderly, and for more immunocompromise. Clear return precautions given prior to discharge. Departure - Departure Disposition: Home, Self Care Clinical Impression: Ovarian cyst Qualifiers: Laterality: left Qualified Code(s): N83.202 - Unspecified ovarian cyst, left side Shingles Qualifiers: Herpes zoster complications: without complications Qualified Code(s): B02.9 - Zoster without complications Instructions: ED Shingles Prescriptions: Acyclovir 800 mg PO 5XD #25 tablet Lidocaine Patch 5% [Lidoderm Patch] 1 patch TOP DAILY PRN #10 patch PRN Reason: pain polyethylene glycoL 3350 [Miralax] 17 gm PO DAILY #30 packet HYDROcod/ACETAM 5/325 [Forman 5/325] 1 - 2 ea PO Q6H PRN #14 tablet PRN Reason: Pain Comments: Thank you for allowing us to care for you today at [facility]. Today in the emergency department you were evaluated for any possible dangerous or life-threatening medical emergency. You are diagnosed with a shingles rash. Please keep this area covered at all times until all of the vesicles have broken and resolved. This area is contagious and it is important that you avoid contact with the elderly, immunocompromised and with women. I written a prescription for a course of an oral antiviral medication, please take this as directed. The CT scan of your abdomen and pelvisDid not show any thickening of your bowel as had been seen during her previous scan however the cystic structure involving your left ovary was reevaluatedAnd there was concern for neoplastic cystic pr ocess. This will require further evaluation by your primary care doctor. Have written prescription for medication he can take at home for pain control. Please use this as directed. Additionally written medication to help with your chronic constipation. Again please do follow-up with your primary care doctor concerning both this and your recent ER evaluation. If you have new or worsening symptoms please not hesitate to return. Forms: PCP List Discharge Date/Time: 06/02/23 16:29
[2023-06-02 13:33] LABS: ALBUMIN/GLOBULIN RATIO 1.1 (1.0-2.2); BILIRUBIN,TOTAL 0.6 mg/dL (0.2-1.0); CALCIUM 9.3 mg/dL (8.5-10.3); POTASSIUM 3.9 mmol/L (3.5-4.5); TOTAL PROTEIN 7.7 g/dL (6.4-8.9)
[2023-06-02] MEDS ORDERED: iohexoL-300 100 ML VIAL ONE (14:02)
[2023-06-02 15:13] LABS: BILIRUBIN,URINE NEGATIVE (NEGATIVE); GLUCOSE, URINE (UA) NEGATIVE (NEGATIVE); KETONES,URINE (UA) 15 mg/dL (NEGATIVE); LEUKOCYTE ESTERASE, URINE NEGATIVE (NEGATIVE); NITRITE,URINE NEGATIVE (NEGATIVE); OCCULT BLOOD,URINE NEGATIVE (NEGATIVE); PH,URINE 5.5 PH (5.0-7.5); PROTEIN,URINE NEGATIVE (NEGATIVE); UROBILINOGEN,URINE 0.2 (NORMAL) E.U./dL (NORMAL)
--- NOTE | 2023-06-02 15:13 | CT Report ---
PROCEDURE: Abdomen/Pelvis W INDICATIONS: abd pain CONTRAST: 100ml omni 300 TECHNIQUE: After the administration of intravenous contrast, a CT scan of the abdomen and pelvis was performed. Images were recorded and evaluated at appropriate window settings. Reformats: coronal and sagittal. F or radiation dose reduction, the following was used: automated exposure control, adjustment of mA and /or kV according to patient size. COMPARISON: 05/28/2023 FINDINGS: Image quality: Diagnostic. Lower chest: A small hiatal hernia is incidentally noted. Liver: No solid mass. Diffuse fatty liver infiltration can be seen. Gallbladder and biliary tree: Cholecystectomy Spleen: No splenomegaly. An accessory splenule is incidentally noted along the hilum of the primary spleen. Pancreas: No pancreatic ductal dilation. Adrenals: No adrenal nodule. Kidneys and ureters: No hydronephrosis. No renal cystic lesion which requires follow up. No solid mas s. Stomach, bowel and peritoneum: The volume of stool within the colon is not excessive. The colon is la rgely decompressed. No bowel distension. No pathologic free fluid. The previously described narrowing within the right as pect of the transverse colon is no air seen. Lymph nodes: No central or retroperitoneal adenopathy. Vessels: No infrarenal aortic aneurysm. PELVIS Reproductive organs: Status post hysterectomy. There is a left adnexal cystic structure that measures 3.3 cm, which is stable from the recent prior. Bladder: No abnormal wall thickening, accounting for underdistention. Pelvic lymph nodes: No pelvic adenopathy by size criteria. Bones: No aggressive osseous abnormality. Focal lower lumbar spine degenerative change is seen. Milde r degenerative changes are seen elsewhere. Other: No significant ventral or inguinal hernia. IMPRESSION: Negative for constipation. No significant colonic abnormality is seen. Interval resolution of the previously seen apparent narrowing within the right aspect of the transver se colon, which is attributed to artifact on the prior. There is a 3.3 cm left adnexal cyst. In a patient of this age, please consider an indolent cystic byron plasm. A scheduled follow-up pelvic ultrasound is suggested for further evaluation. Additional findings: Small hiatal hernia Fatty liver infiltration Cholecystectomy Accessory splenule Hysterectomy Focal lower lumbar spine degenerative change Reviewed by: Carter Gómez MD on 06/02/2023 2:12 PM AKST Approved by: Carter Gómez MD on 06/02/2023 2:12 PM AKST Station ID: [id number]
[2023-06-02 15:15] LABS: CLARITY,URINE CLEAR (CLEAR)
[2023-06-02 16:27] VITALS: BP 153/72; O2SAT 97
[2023-06-02] MEDS: iohexoL-300 100 ML VIAL IVP ONE (18:26)
== END 2023-06-02 16:29 | disposition home or self-care (01) ==
LOC: ED 12:15
DX: N83.202 Unspecified ovarian cyst, left side (principal); B02.9 Zoster without complications; E11.42 Type 2 diabetes mellitus with diabetic polyneuropathy
CPT/HCPCS: 36415; 74177; 80053; 81003; 83605; 83690; 85025; 96374; 99284; A9270; Q9967; 81001; 87086

== ENCOUNTER 2023-06-22 15:08 | Outpatient (CLI) | payer MEDICARE ==
--- NOTE | 2023-06-23 17:52 | Ultrasound Report ---
PROCEDURE: Pelvic Limited INDICATIONS: OVARIAN CYST TECHNIQUE: Real-time scanning was performed of the pelvic organs, with image documentation. Patient refused foster svaginal portion of the exam. COMPARISON: CT of abdomen and pelvis dated 06/02/2023 and 05/28/2023. FINDINGS: Uterus: Uterus is surgically absent. No gross abnormality is seen in the vaginal cuff region. Ovaries: Right ovary is not investigated. The left ovary measures 3.35 x 2.28 x 2.77 cm, with a calcu lated ovarian volume of 11.06 cc. Simple appearing cyst involving left ovary measures 2.4 x 1.8 x 2.6 cm in size is seen. Less than 12 follicles can be seen in each ovary. No adnexal masses are seen. No cystic lesions measuring greater than 3 cm. Other: No pathologic free abdominal or pelvic fluid. IMPRESSION: 1. Simple appearing left ovarian cyst measures 2.4 x 1.8 x 2.6 cm in size. No solid-appearing ovarian lesion. 2. Prior hysterectomy. Reviewed by: James Hanna MD on 06/23/2023 5:51 PM PDT Approved by: James Hanna MD on 06/23/2023 5:51 PM PDT Station ID: [id number]
== END 2023-06-22 15:09 | disposition home or self-care (01) ==
LOC: DI 15:08
PROVIDERS: ATTEND Family Medicine
DX: N83.292 Other ovarian cyst, left side (principal); Z90.710 Acquired absence of both cervix and uterus